=== PATIENT | male | born 1955 | race Caucasian/White ===

== ENCOUNTER 2025-06-17 06:34 | Day surgery (SDC) | payer OTHER, SELFPAY | END 2025-06-17 11:57 | disposition home or self-care (01) | LOC: GI 06:34 | PROVIDERS: ATTENDING PHYSICIAN Internal Medicine Gastroenterology; FAMILY PHYSICIAN Family Medicine | DX: Z12.11 Encounter for screening for malignant neoplasm of colon (principal); K57.30 Diverticulosis of large intestine without perforation or abscess without bleeding; K64.8 Other hemorrhoids; Z86.0100 Personal history of colon polyps, unspecified | CPT/HCPCS: G0105 ==